=== PATIENT | female | born 1965 | race African-American/Black ===

== ENCOUNTER → 2017-04-17 | Day surgery (SDC) | payer OTHER ==
[~2017-04-17] MED LIST: CLARITIN10 M2 PO; NAPROSYN250 M1 PO; VITAMIN B-12250 MCG PO
--- NOTE | ~2017-04-17 | OR ---
Unit #: [id number]: [id number] Patient: PAMELA MIKE [id number] [address] [place], [place] [address] [id number] O MR#: [id number] NAME: PAMELA MIKE. ROOM: Date of Procedure: 04/17/2017 Admission Date: 04/17/2017 Surgeon: Laci Delaney M.D. : 1965 Attending Physician: Laci Delaney M.D. Primary Care Physician: [facility] OPERATIVE REPORT JOB NOTE: CC: DR. BAKARI BURRELL PROCEDURE PERFORMED Colonoscopy to cecum. INDICATIONS Average risk colorectal cancer. MEDICATIONS Monitored anesthesia. POSTOPERATIVE FINDINGS 1. Normal exam to the cecum. No polyps, masses, or colitis. 2. Good prep. PLAN Colonoscopy in 10 years. DESCRIPTION OF PROCEDURE The patient was explained of the procedure, risks, and benefits along with the risks and benefits of anesthesia. She was brought to the endoscopy room. Propofol anesthesia was given. Rectal exam was done, which was normal. Colonoscope was lubricated, passed up the rectum, advanced under direct vision all the way to the cecum. Cecum was identified by ileocecal valve and appendiceal orifice. I then started to pull the scope out carefully looking. No polyps, masses, or colitis was seen. Mucosa was normal and healthy. I retroflexed in the rectum, small hemorrhoids seen. Gently, the scope was pulled out. She tolerated it well. Dictated by... Consuelo Ballard/latoya TD: 04/17/2017 23:25 JOB #: [id number] Unit #: [id number] #: [id number] Patient: PAMELA MIKE OPERATIVE REPORT Page 1 of 1 X Laci Delaney MD X PROCEDURE OPERATIVE NOTE
== END | disposition home or self-care (01) ==
LOC: COPS 10:03
PROVIDERS: Internal Medicine
PROC: 0DJD8ZZ Inspection of Lower Intestinal Tract, Via Natural or Artificial Opening Endoscopic (ICD-10-PCS; principal; 2017-04-17 12:00)
DX: Z12.11 Encounter for screening for malignant neoplasm of colon (principal); K64.9 Unspecified hemorrhoids; F17.200 Nicotine dependence, unspecified, uncomplicated; Z98.890 Other specified postprocedural states